=== PATIENT | male | born 1945 | race Caucasian/White ===

== ENCOUNTER → 2016-08-13 | Outpatient (CLI) | payer MEDICARE, BC ==
[~2016-08-13] MED LIST: ALIS300T PO; AMLO1TAB78 PO; ASPI-482 PO; CARV25TA PO; CONTRAST GIVEN MC PRN; FENO145T PO; HYDR-2869 PO; IOHEXOL 240 MG/ML 50ML VIAL. PO ONE; IOHEXOL 300 MG/ML 75 ML VIAL IV ONE; METF10002 PO; NAPR220C4 PO
[2016-08-13 13:20] LABS: BASO % 0 % (0-3); EOS % 2 % (0-3); HEMATOCRIT 43.9 % (39.0-53.0); HEMOGLOBIN 14.5 g/dL (13.0-17.5); LYMPH # 1.4 x10^3/uL (1.0-4.8); LYMPH % 15 % (24-48); MEAN CORPUSCULAR HEMOGLOBIN 28 pg (25-35); MEAN CORPUSCULAR HGB CONC 33 g/dL (31-37); MEAN CORPUSCULAR VOLUME 86 fL (79-100); MONO % 6 % (0-9); NEUT % 77 % (31-73); PLATELET COUNT 267 x10^3/uL (140-400); RED BLOOD COUNT 5.13 x10^6/uL (4.30-5.70); WHITE BLOOD COUNT 9.2 x10^3/uL (4.0-11.0)
[2016-08-13 13:37] LABS: ALBUMIN 4.4 g/dL (3.4-5.0); ALBUMIN/GLOBULIN RATIO 1.1 (1.0-1.7); CALCIUM 9.4 mg/dL (8.5-10.1); CREATININE 1.2 mg/dL (0.7-1.3); GFR 59.9; POTASSIUM 3.5 mmol/L (3.5-5.1); TOTAL BILIRUBIN 0.5 mg/dL (0.2-1.0); TOTAL PROTEIN 8.4 g/dL (6.4-8.2)
--- NOTE | 2016-08-13 15:38 | RAD ---
CT of the abdomen and pelvis with contrast, 08/13/2016: History: Right upper quadrant pain Multidetector CT imaging was performed following oral and IV administration of contrast. Comparison is made to a study from 01/29/2014. The liver is of lower than normal density compatible with fatty change. It measures 25 cm in craniocaudad extent. No hepatic mass is evident. The gallbladder is somewhat contracted. No dense gallstones are seen. No pancreatic abnormality is detected. The spleen is of normal size. There is no evidence of a renal mass or hydronephrosis. Moderate aortoiliac calcific plaquing is present without evidence of aneurysm. No abdominal or pelvic adenopathy is seen. The prostate gland is not enlarged. There is moderate diffuse bladder wall thickening, although this may be accentuated by the lack of bladder distention. The bowel loops are unremarkable. The appendix shows no abnormality. No free fluid or free air is evident in the abdomen or pelvis. Moderate multilevel hypertrophic degenerative change is present in the spine. IMPRESSION: 1. Hepatomegaly with hepatic steatosis. 2. Moderate diffuse bladder wall thickening suggesting chronic bladder outlet obstruction versus cystitis. 3. Coronary artery disease. PQRS Compliance Statement: One or more of the following individualized dose reduction techniques were utilized for this examination: 1. Automated exposure control 2. Adjustment of the mA and/or kV according to patient size 3. Use of iterative reconstruction technique
== END | disposition home or self-care (01) ==
LOC: CT 12:48
PROVIDERS: ATTEND Internal Medicine Gastroenterology
DX: R10.9 Unspecified abdominal pain (principal); R16.0 Hepatomegaly, not elsewhere classified; K76.0 Fatty (change of) liver, not elsewhere classified; I25.10 Atherosclerotic heart disease of native coronary artery without angina pectoris
CPT/HCPCS: 36415; 74177; 80053; 82150; 83690; 85027; Q9966; Q9967

== ENCOUNTER → 2016-08-20 | Outpatient (CLI) | payer MEDICARE, BC ==
[~2016-08-20] MED LIST changes: -CONTRAST GIVEN MC PRN; -IOHEXOL 240 MG/ML 50ML VIAL. PO ONE; -IOHEXOL 300 MG/ML 75 ML VIAL IV ONE
--- NOTE | 2016-08-20 10:53 | KCIC ---
PROCEDURE Limited abdominal ultrasound. HISTORY Right upper quadrant pain. TECHNIQUE Real-time ultrasound imaging of the right upper quadrant of the abdomen is performed. COMPARISON Abdominal ultrasound February 08, 2014. FINDINGS Exam is limited due to patient body habitus and overlying bowel gas. The pancreas is not well seen. The IVC and aorta are obscured. The liver is enlarged and diffusely increased in echogenicity. The right hepatic lobe measures 22 centimeters. Portal flow is hepatopetal. No gallbladder wall thickening or pericholecystic fluid or cholelithiasis is seen. Sonographic Mejias sign is negative. Common bile duct is normal in caliber measuring 6 millimeters. The right kidney length is 13.3 cm. Appearance is normal. No hydronephrosis. IMPRESSION Hepatomegaly. Fatty infiltration of the liver. Electronically signed by: Rich Pope MD (Aug 20, 2016 10:53:11)
== END | disposition home or self-care (01) ==
LOC: KCIC US 09:25
PROVIDERS: ATTEND Internal Medicine Gastroenterology
DX: K76.0 Fatty (change of) liver, not elsewhere classified (principal); R16.0 Hepatomegaly, not elsewhere classified
CPT/HCPCS: 76705

== ENCOUNTER → 2018-09-20 | Outpatient (CLI) | payer MEDICARE, BC ==
[~2018-09-20] MED LIST changes: -AMLO1TAB78 PO; +AMLO1TAB97 PO; +CONTRAST GIVEN. MC PRN; +IOHEXOL 240 MG/ML 50ML VIAL. PO ONE; +IOHEXOL 300 MG/ML 100ML VIAL. IV ONE; -METF10002 PO; +METF10007 PO
--- NOTE | 2018-09-20 16:55 | KCIC ---
CT STUDY OF THE ABDOMEN AND PELVIS WITH CONTRAST Clinical indications: New diagnosis of sigmoid colon cancer. TECHNIQUE: After IV infusion of 100 cc of Omnipaque 300, helical CT scanning of the abdomen and pelvis was performed. GI contrast was administered per mouth. PQRS compliance Statement One or more of the following individualized dose reduction techniques were utilized for this study: 1. Automated exposure control 2. Adjustment of the mA and/or kV according to patient size 3. Use of iterative reconstruction technique COMPARISON: August 13, 2016. FINDINGS: Diffuse fatty infiltration of the liver is seen. The spleen is not enlarged. The pancreas and gallbladder are normal. No extra hepatic biliary ductal dilatation is seen. No adrenal mass is evident. Both kidneys are normal without hydronephrosis or hydroureter. Urinary bladder is not abnormally distended. No focal aneurysmal dilatation of the abdominal aorta is seen. No enlarged abdominal or pelvic lymphadenopathy is evident. The appendix is normal. The terminal ileum is unremarkable. No obstructive bowel pattern is evident. No free air or free fluid or mesenteric inflammatory change is evident. No discrete soft tissue mass or colonic mass is evident. On images 78 through 80 and series 2, there is focal wall thickening of the proximal sigmoid colon without extra colonic mass. This measures about 8 cm in length.No lytic process is seen. No lung base infiltrate is evident. IMPRESSION: No discrete colon mass or soft tissue mass is seen. There is segmental wall thickening of the proximal sigmoid colon without extra colonic soft tissue mass or extension. No obstructive bowel pattern is evident. No enlarged abdominal or pelvic lymphadenopathy is evident. Diffuse fatty infiltration of the liver. No hepatic metastasis is seen. Electronically signed by: Edward Mccarty MD (09/20/2018 4:52 PM) [id number]
== END | disposition home or self-care (01) ==
LOC: KCIC CT 11:29
PROVIDERS: ATTEND Internal Medicine Gastroenterology
DX: K76.0 Fatty (change of) liver, not elsewhere classified (principal); C18.7 Malignant neoplasm of sigmoid colon
CPT/HCPCS: 74177; 82565; Q9966; Q9967

== ENCOUNTER 2020-03-07 11:28 | Emergency (ER) | payer MEDICARE, BC ==
[~2020-03-07 11:28] MED LIST changes: -CONTRAST GIVEN. MC PRN; -IOHEXOL 240 MG/ML 50ML VIAL. PO ONE; -IOHEXOL 300 MG/ML 100ML VIAL. IV ONE
--- NOTE | 2020-03-07 12:09 | PHYS DOC ---
General Adult EDM: Chief Complaint: CPR/FULL ARREST HPI: HPI: hpi/ed course: 75-year-old male with a history of heart disease who presents emergency department active CPR in progress. He was found at home in his recliner unresponsive this morning by his . EMS was called who arrived and found the patient to be pulseless. They initiated CPR and started ACLS and brought him in for further evaluation treatment and care. On arrival he had received 6 rounds of epinephrine he was initially in asystole. He had one episode of V. fib that was defibrillated in route. He also received an amp of dextrose. They started the code at 11:00 AM. On arrival at approximately 1128 the patient arrived in the emergency department undergoing CPR with an igel in place. We continued CPR in the emergency department giving epinephrine every 3 to 5 minutes. He remained in asystole without a pulse the entire time. Given his unknown downtime with an asystolic pulse and no response to resuscitation it was deemed medically futile and time of was called at 11:48 AM. Past medical history history of diabetes, and heart disease Surgical history and social history and review of systems is unavailable at this time because of the patients status. Heart Score: Risk Factors: Risk Factors: DM, Current or recent (<one month) smoker, HTN, HLP, family history of CAD, obesity. Risk Scores: Score 0 - 3: 2.5% MACE over next 6 weeks - Discharge Home Score 4 - 6: 20.3% MACE over next 6 weeks - Admit for Clinical Observation Score 7 - 10: 72.7% MACE over next 6 weeks - Early Invasive Strategies Allergies: Allergies: Allergies Coded Allergies Type Severity Reaction Last Updated Verified Penicillins Allergy Unknown Rash 08/10/13 No Physical Exam: PE: Constitutional: Unresponsive HEENT atraumatic pupils nonreactive. Eyes: Non-reactive pupils Neck: No JVD or crepitus Cardiovascular: No pulse. No heart sounds. Lungs: Crackles bilaterally with bagging. No spontaneous breaths. Abdomen is soft and nontender without distention. Skin: Mottled, cold to touch. Back: Atraumatic Extremities: No pulse. Neuro: Unresponsive Psych: Does not make eye contact EKG: EKG: [] Radiology/Procedures: Radiology/Procedures: [] Course & Med Decision Making: Course & Med Decision Making Pertinent Labs and Imaging studies reviewed. (See chart for details) [] Dragon Disclaimer: Dragon Disclaimer: This electronic medical record was generated, in whole or in part, using a voice recognition dictation system. Departure Departure Impression: Primary Impression: Cardiac arrest Disposition: 20 Condition: Referrals: MACK TRENT MD (PCP) Critical Care Time Critical care time spent was 45 minutes exclusive of procedures. Time was spent evaluating the patient, ordering the administration of medications, reevaluating the patient, discussing with the admitting provider and documenting. JARROD PINON MD Mar 07, 2020 12:09
== END 2020-03-07 15:39 ==
LOC: ER 11:28
DX: I46.9 Cardiac arrest, cause unspecified (principal)
CPT/HCPCS: 92950; 99291